=== PATIENT | female | born 1965 | race Caucasian/White ===

== ENCOUNTER 2020-06-15 14:55 | Emergency (ER) | payer MEDICAID ==
[~2020-06-15] VITALS: Ht 167.6 cm; Wt 59.1 kg
[2020-06-15 14:57] VITALS: BP 147/85
--- NOTE | 2020-06-15 16:00 | NUR ---
PT IN NO DISTRESS IN ROOM, ASSMT DEFERRED TO PROVIDER
[2020-06-15] MEDS ORDERED: METH4TAB81 PO (16:05)
[2020-06-15] MEDS ORDERED: ketorolac trometh. 30mg/ml inj. IM ONE (16:10)
[2020-06-15] MEDS ORDERED: ketorolac tromethamine 15mg/ml inj. IM ONE (16:10)
== END 2020-06-15 16:56 | disposition home or self-care (01) ==
LOC: ER 14:56
DX: M77.11 Lateral epicondylitis, right elbow (principal); Z79.899 Other long term (current) drug therapy
CPT/HCPCS: 73080; 96372; 99283; J1885

== ENCOUNTER 2023-10-22 15:17 | Outpatient (CLI) | payer MEDICAID ==
[~2023-10-22] VITALS: Ht 198.1 cm; Wt 74.8 kg
[~2023-10-22 15:17] MED LIST: METH4TAB81 PO
[2023-10-22] MEDS: albuterol 2.5 MG/3 ML nebule NEB ONE (15:58)
[2023-10-22 16:00] VITALS: PULSE 88; RESP 16; O2SAT 94
[2023-10-22 16:13] VITALS: PULSE 96; RESP 18
== END 2023-10-22 23:59 | disposition home or self-care (01) ==
LOC: RT 15:17
PROVIDERS: ATTEND Nurse Practitioner Family
DX: R06.02 Shortness of breath (principal)
CPT/HCPCS: 94060; 94760

== ENCOUNTER 2024-06-13 15:10 | Emergency (ER) | payer MEDICAID ==
[~2024-06-13] VITALS: Ht 167.6 cm; Wt 78.8 kg
[2024-06-13 17:18] LABS: BASOPHILS # (AUTO) 0.1 X10'3 (0-0.2); BASOPHILS % (AUTO) 0.9 % (0-1); EOSINOPHILS # (AUTO) 0.2 X10'3 (0-0.9); EOSINOPHILS % (AUTO) 1.5 % (0-6); HEMATOCRIT 44.7 % (35.0-45.0); HEMOGLOBIN 15.2 g/dl (12.0-16.0); LYMPHOCYTES # (AUTO) 2.1 X10'3 (1.1-4.8); LYMPHOCYTES % (AUTO) 21.2 % (21-51); MEAN CORPUSCULAR HEMOGLOBIN 30.3 PG (27.0-31.0); MEAN CORPUSCULAR HGB CONC 34.1 g/dL (33.0-36.5); MEAN CORPUSCULAR VOLUME 88.9 FL (78-98); MEAN PLATELET VOLUME 7.9 FL (7.4-10.4); MONOCYTES # (AUTO) 0.7 X10'3 (0-0.9); MONOCYTES % (AUTO) 6.7 % (2-12); NEUTROPHILS % (AUTO) 69.7 % (42-75); PLATELET COUNT 475 X10'3 (140-440); RED BLOOD COUNT 5.03 X10'6 (4.20-5.60); RED CELL DISTRIBUTION WIDTH 13.7 % (11.5-14.5)
[2024-06-13 17:31] LABS: ALANINE AMINOTRANSFERASE 21 U/L (12-78); ALBUMIN 3.1 G/DL (3.4-5.0); ALBUMIN/GLOBULIN RATIO 0.6 (1.1-1.5); ALKALINE PHOSPHATASE 132 IU/L (46-116); ANION GAP 7 (8-16); ASPARTATE AMINO TRANSFERASE 22 U/L (10-37); BILIRUBIN,TOTAL 0.2 MG/DL (0.1-1.0); BLOOD UREA NITROGEN 7 MG/DL (7-18); BUN/CREATININE RATIO 11.5 (10.0-20.0); CALCIUM 9.1 MG/DL (8.5-10.1); CHLORIDE 105 MMOL/L (99-107); CREATININE 0.61 MG/DL (0.40-0.90); GLUCOSE 124 MG/DL (70-104); POTASSIUM 3.7 MMOL/L (3.5-5.1); SODIUM 141 MMOL/L (135-145); TOTAL CARBON DIOXIDE 29.5 MMOL/L (24-32); eCRCL 92 ML/MIN; eGFR > 90 ML/MIN
[2024-06-13 17:40] LABS: PRO BRAIN NATRIURETIC PEPTIDE 136 PG/ML (0-125)
[2024-06-13] MEDS: normal saline 1000ml 1,000 ML IV ONE (18:22)
[2024-06-13 18:31] LABS: D-DIMER 0.97 MG/L FEU (0-0.50)
[2024-06-13 18:33] LABS: THYROID STIMULATING HORMONE 0.54 ulU/ml (0.34-4.50)
[2024-06-13] MEDS ORDERED: iohexol 350MG/ML 100ml bottle IV ONE (18:41)
[2024-06-13] MEDS: SUMAtriptan 25 MG tablet PO ONE (20:05)
[2024-06-13 20:57] VITALS: BP 146/94; PULSE 108; RESP 16; TEMP 97.2; O2SAT 94
== END 2024-06-13 21:06 | disposition home or self-care (01) ==
LOC: ER 15:10
DX: I49.9 Cardiac arrhythmia, unspecified (principal); I10 Essential (primary) hypertension
CPT/HCPCS: 36415; 71045; 71275; 80053; 83880; 84443; 84484; 85025; 85379; 93005; 96360; 96361; 99285; J7030; Q9967